=== PATIENT | male | born 1950 | race Caucasian/White ===

== ENCOUNTER 2024-09-17 13:42 | Outpatient (CLI) | payer OTHER ==
[2024-09-17 14:41] LABS: ALT/SGPT 125.0 U/L (12-78); AST/SGOT 100.0 U/L (15-37); BILIRUBIN TOTAL 2.57 mg/dL (0.3-1.2); BUN CREA RATIO 17.0 (7.0-25.0); CREATININE SERUM 0.83 mg/dL (0.70-1.30); GFR 90.57; GLOBULINA 4.6 G/DL (2.4-3.5); GLUCOSE FASTING 96.0 mg/dL (65-100); OSMOLALITY SERUM 280.0 MOSM/KG (275-295)
== END 2024-09-17 13:49 | disposition home or self-care (01) ==
LOC: LAB 13:42
PROVIDERS: ATTEND Internal Medicine
DX: R93.2 Abnormal findings on diagnostic imaging of liver and biliary tract (principal)

== ENCOUNTER 2024-09-23 07:44 | Outpatient (CLI) | payer OTHER ==
[2024-09-24] MEDS ORDERED: COZAAR100 MG PO (10:28)
== END 2024-09-23 07:49 | disposition home or self-care (01) ==
LOC: SONOGRAMA 07:44
PROVIDERS: ATTEND Internal Medicine
DX: R93.2 Abnormal findings on diagnostic imaging of liver and biliary tract (principal)
CPT/HCPCS: 74181

== ENCOUNTER 2024-09-26 05:26 | Inpatient (IN) | payer OTHER ==
[2024-09-24 10:44] LABS: BASO % 0.5 % (0.1-1.2); EOS # 0.17 (0.04-0.54); EOS % 1.7 % (0.7-7.0); LYMPH # 2.26 (1.18-3.74); LYMPH % 22.9 % (19.3-53.1); MEAN PLATELET VOLUME 12.60 fl (9.4-12.4); MONO # 0.82 (0.24-0.82); MONO % 8.3 % (4.7-12.5); NEUT # 6.52 (1.56-6.13); NEUT % 66.3 % (34.0-71.1); RED CELL DISTRIBUTION WIDTH 14.1 % (11.6-14.4)
[2024-09-24 11:07] LABS: INR 1.14
[2024-09-24 11:53] LABS: ALT/SGPT 130.0 U/L (12-78); AST/SGOT 119.0 U/L (15-37); BILIRUBIN TOTAL 2.9 mg/dL (0.3-1.2); BUN CREA RATIO 19.0 (7.0-25.0); CREATININE SERUM 0.81 mg/dL (0.70-1.30); GFR 93.15; GLOBULINA 4.1 G/DL (2.4-3.5); GLUCOSE FASTING 92.0 mg/dL (65-100); OSMOLALITY SERUM 278.0 MOSM/KG (275-295)
[~2024-09-26] VITALS: Ht 170.2 cm; Wt 94.8 kg
[~2024-09-26 05:26] MED LIST: COZAAR100 MG PO
[2024-09-26] MEDS ORDERED: DICLOFENAC SODIUM 100 MG SUPP.RECT RECTAL ONE (15:45)
[2024-09-26] MEDS ORDERED: IOVERSOL 320 MG/ML - 50 ML VIAL IV ONE (15:45)
[2024-09-26] MEDS ORDERED: GLUCAGON 1 MG VIAL IV ONE (15:45)
[2024-09-26] MEDS ORDERED: ACETAMINOPHEN 500 MG GEL..CAP PO PRN (16:00)
[2024-09-26] MEDS ORDERED: RINGERS SOLUTION,LACTATED 1,000 ML IV SCH (16:00)
[2024-09-26] MEDS ORDERED: ENALAPRILAT DIHYDRATE 2.5 MG/2 ML VIAL IV PRN (16:00)
[2024-09-26] MEDS ORDERED: ENALAPRILAT DIHYDRATE 1.25 MG/ML VIAL IV PRN (16:00)
[2024-09-26] MEDS ORDERED: PIPERACILLIN/TAZOBACTAM SODIUM 3.375 GM in 0.9 % SODIUM CHLORIDE 100 ML IV SCH (18:00)
[2024-09-26] MEDS ORDERED: FAMOTIDINE/PF 20 MG in 0.9 % SODIUM CHLORIDE 8 ML IV PUSH SCH (21:00)
[2024-09-27 02:11] VITALS: BP 135/78; O2SAT 97
[2024-09-27 07:00] VITALS: BP 131/65; O2SAT 96
[2024-09-27 07:08] LABS: BASO % 0.6 % (0.1-1.2); EOS # 0.13 (0.04-0.54); EOS % 1.6 % (0.7-7.0); LYMPH # 1.73 (1.18-3.74); LYMPH % 20.9 % (19.3-53.1); MEAN PLATELET VOLUME 13.20 fl (9.4-12.4); MONO # 0.78 (0.24-0.82); MONO % 9.4 % (4.7-12.5); NEUT # 5.57 (1.56-6.13); NEUT % 67.3 % (34.0-71.1); RED CELL DISTRIBUTION WIDTH 14.0 % (11.6-14.4)
[2024-09-27 07:51] LABS: ALT/SGPT 88.0 U/L (12-78); AST/SGOT 74.0 U/L (15-37); BILIRUBIN TOTAL 2.06 mg/dL (0.3-1.2); BUN CREA RATIO 15.0 (7.0-25.0); CREATININE SERUM 1.77 mg/dL (0.70-1.30); GFR 37.79; GLOBULINA 3.3 G/DL (2.4-3.5); GLUCOSE FASTING 75.0 mg/dL (65-100); OSMOLALITY SERUM 287.0 MOSM/KG (275-295)
[2024-09-27] MEDS ORDERED: ENOXAPARIN SODIUM 40 MG/0.4 ML SYRINGE SUBCUTANEO SCH (09:00)
[2024-09-27] MEDS ORDERED: LOSARTAN POTASSIUM 25 MG TABLET PO SCH (09:00)
[2024-09-27] MEDS ORDERED: LOSARTAN POTASSIUM 100 MG TABLET PO SCH (09:00)
[2024-09-27 16:00] VITALS: BP 153/83; O2SAT 98
[2024-09-28 01:46] VITALS: BP 125/73; O2SAT 98
[2024-09-28] MEDS ORDERED: hydrALAZINE HCL 20 MG VIAL IV PRN (07:15)
[2024-09-28 08:00] VITALS: BP 139/69; O2SAT 97
[2024-09-28 08:38] LABS: BASO % 0.6 % (0.1-1.2); EOS # 0.21 (0.04-0.54); EOS % 3.1 % (0.7-7.0); LYMPH # 1.45 (1.18-3.74); LYMPH % 21.5 % (19.3-53.1); MEAN PLATELET VOLUME 13.20 fl (9.4-12.4); MONO # 0.65 (0.24-0.82); MONO % 9.6 % (4.7-12.5); NEUT # 4.36 (1.56-6.13); NEUT % 64.8 % (34.0-71.1); RED CELL DISTRIBUTION WIDTH 14.3 % (11.6-14.4)
[2024-09-28] MEDS ORDERED: AMLODIPINE BESYLATE 5 MG TABLET PO SCH (09:00)
[2024-09-28 09:24] LABS: ALT/SGPT 73.0 U/L (12-78); AST/SGOT 55.0 U/L (15-37); BILIRUBIN TOTAL 1.4 mg/dL (0.3-1.2); BUN CREA RATIO 13.0 (7.0-25.0); CREATININE SERUM 2.07 mg/dL (0.70-1.30); GFR 31.55; GLOBULINA 3.2 G/DL (2.4-3.5); GLUCOSE FASTING 73.0 mg/dL (65-100); OSMOLALITY SERUM 292.0 MOSM/KG (275-295)
[2024-09-28 14:32] LABS: URINE APPEARANCE Clear; URINE BILIRRUBIN Negative (NEGATIVE); URINE BLOOD Negative; URINE COLOR Yellow; URINE GLUCOSE Negative (NEGATIVE); URINE KETONE Negative (NEGATIVE); URINE LEUKOCYTE Negative; URINE NITRATE Negative; URINE PROTEIN Negative (NEGATIVE); URINE UROBILINOGEN 1.0 E.U./dl
[2024-09-28 14:33] LABS: URINE BACTERIA 10.7 uL (0.0-1933); URINE EPITHELIAL CELLS 8.9 uL (0.0-38.8); URINE WBC 10.2 uL (0.0-23.2)
[2024-09-28 14:41] LABS: URINE CAST 0.14 uL (0.0-1.40); URINE RBC 1.6 uL (0.0-20.8)
[2024-09-28 16:00] VITALS: BP 163/78; O2SAT 98
[2024-09-28 20:00] VITALS: BP 152/72; O2SAT 97
[2024-09-29 00:34] VITALS: BP 147/83; O2SAT 100
[2024-09-29 08:04] LABS: BASO % 0.5 % (0.1-1.2); EOS # 0.16 (0.04-0.54); EOS % 2.1 % (0.7-7.0); LYMPH # 1.51 (1.18-3.74); LYMPH % 19.6 % (19.3-53.1); MEAN PLATELET VOLUME 13.10 fl (9.4-12.4); MONO # 0.65 (0.24-0.82); MONO % 8.4 % (4.7-12.5); NEUT # 5.31 (1.56-6.13); NEUT % 69.0 % (34.0-71.1); RED CELL DISTRIBUTION WIDTH 14.1 % (11.6-14.4)
[2024-09-29 08:17] LABS: ALT/SGPT 85.0 U/L (12-78); AST/SGOT 88.0 U/L (15-37); BILIRUBIN TOTAL 2.34 mg/dL (0.3-1.2); BUN CREA RATIO 15.0 (7.0-25.0); CREATININE SERUM 1.52 mg/dL (0.70-1.30); GFR 45.05; GLOBULINA 3.2 G/DL (2.4-3.5); GLUCOSE FASTING 91.0 mg/dL (65-100); OSMOLALITY SERUM 290.0 MOSM/KG (275-295)
[2024-09-29] MEDS ORDERED: AMLODIPINE BESYLATE 5 MG TABLET PO SCH (09:00)
[2024-09-29 09:55] VITALS: BP 140/76; O2SAT 96
[2024-09-29 16:00] VITALS: BP 126/64; O2SAT 99
[2024-09-30 01:05] VITALS: BP 117/61; O2SAT 98
[2024-09-30 07:39] LABS: ALT/SGPT 91.0 U/L (12-78); AST/SGOT 83.0 U/L (15-37); BILIRUBIN TOTAL 2.09 mg/dL (0.3-1.2); BUN CREA RATIO 11.0 (7.0-25.0); CREATININE SERUM 1.09 mg/dL (0.70-1.30); GFR 66.13; GLOBULINA 3.6 G/DL (2.4-3.5); GLUCOSE FASTING 93.0 mg/dL (65-100); OSMOLALITY SERUM 286.0 MOSM/KG (275-295)
[2024-09-30 08:00] VITALS: BP 139/74; O2SAT 99
[2024-09-30] MEDS ORDERED: GLUCAGON 1 MG VIAL IV ONE (18:15)
[2024-09-30] MEDS ORDERED: SUGAMMADEX SODIUM 200 MG/2 ML VIAL IV ONE (20:30)
[2024-10-01] MEDS ORDERED: ONDANSETRON HCL 2 MG/ML VIAL IV PRN (07:30)
[2024-10-01] MEDS ORDERED: MORPHINE SULFATE 4 MG/ML CARTRIDGE IV PRN (07:30)
[2024-10-01 08:00] VITALS: BP 154/84; O2SAT 97
== END 2024-10-01 18:40 | disposition home or self-care (01) | DRG 445 ==
LOC: CIR.AMB 05:26 → SURH 16:38 → O/R 16:38 → SURG 16:38 → SURH 16:40 → SURG 09-30 13:09
PROVIDERS: Internal Medicine; Internal Medicine Nephrology; ADMIT Internal Medicine; ATTEND Internal Medicine
PROC: 0FJB8ZZ Inspection of Hepatobiliary Duct, Via Natural or Artificial Opening Endoscopic (ICD-10-PCS; 2024-09-26)
PROC: 0DJ08ZZ Inspection of Upper Intestinal Tract, Via Natural or Artificial Opening Endoscopic (ICD-10-PCS; principal; 2024-09-26 08:00)
PROC: BT43ZZZ Ultrasonography of Bilateral Kidneys (ICD-10-PCS; 2024-09-28)
PROC: 0F798DZ Dilation of Common Bile Duct with Intraluminal Device, Via Natural or Artificial Opening Endoscopic (ICD-10-PCS; 2024-09-30)
PROC: 0FC98ZZ Extirpation of Matter from Common Bile Duct, Via Natural or Artificial Opening Endoscopic (ICD-10-PCS; 2024-09-30)
PROC: BF10YZZ Fluoroscopy of Bile Ducts using Other Contrast (ICD-10-PCS; 2024-09-30)
PROC: XFJB8A7 Inspection of Hepatobiliary Duct using Single-use Duodenoscope, New Technology Group 7 (ICD-10-PCS; 2024-09-30)
DX: K83.1 Obstruction of bile duct (principal); N17.9 Acute kidney failure, unspecified; R17 Unspecified jaundice; K26.9 Duodenal ulcer, unspecified as acute or chronic, without hemorrhage or perforation; K83.8 Other specified diseases of biliary tract; K82.8 Other specified diseases of gallbladder; R10.13 Epigastric pain; R74.8 Abnormal levels of other serum enzymes; R59.0 Localized enlarged lymph nodes; I12.9 Hypertensive chronic kidney disease with stage 1 through stage 4 chronic kidney disease, or unspecified chronic kidney disease; N18.9 Chronic kidney disease, unspecified
CPT/HCPCS: 74181

== ENCOUNTER 2025-01-02 07:00 | Day surgery (SDC) | payer OTHER ==
[2024-12-27 14:01] VITALS: BP 160/94
[2024-12-27 14:17] LABS: INR 1.19
[~2025-01-02] VITALS: Ht 185.4 cm; Wt 96.6 kg
[~2025-01-02 07:00] MED LIST changes: +ATORVASTATIN CA10 MG PO
[2025-01-02] MEDS ORDERED: DICLOFENAC SODIUM 100 MG SUPP.RECT RECTAL ONE (14:30)
[2025-01-02] MEDS ORDERED: CIPROFLOXACIN IN 5 % DEXTROSE 400 MG/200 ML PIGGYBAG IV ONE (16:21)
== END 2025-01-02 18:30 | disposition home or self-care (01) ==
LOC: EDSEX → CIR.AMB 07:00 → AMB-ERCP 12:38 → CIR.AMB 15:36 → AMB-ENDOS 15:36 → CIR.AMB 18:30
PROVIDERS: ATTEND Internal Medicine
DX: C22.1 Intrahepatic bile duct carcinoma (principal); T85.590A Other mechanical complication of bile duct prosthesis, initial encounter; C22.9 Malignant neoplasm of liver, not specified as primary or secondary; K83.1 Obstruction of bile duct; R93.2 Abnormal findings on diagnostic imaging of liver and biliary tract
CPT/HCPCS: 43276; C1748